=== PATIENT | female | born 1970 | race Caucasian/White ===

== ENCOUNTER 2018-06-25 15:15 | Emergency (ER) | payer OTHER ==
[~2018-06-25] VITALS: Ht 165.1 cm; Wt 71.3 kg
[2018-06-25 15:28] VITALS: BP 183/117
== END 2018-06-25 15:54 | disposition home or self-care (01) ==
LOC: ER 15:16
DX: J45.909 Unspecified asthma, uncomplicated (principal); I10 Essential (primary) hypertension; F41.9 Anxiety disorder, unspecified; F17.210 Nicotine dependence, cigarettes, uncomplicated; Z98.890 Other specified postprocedural states; Z85.41 Personal history of malignant neoplasm of cervix uteri
CPT/HCPCS: 99283; A4606; Z7610

== ENCOUNTER 2018-07-25 03:29 | Emergency (ER) | payer OTHER ==
[~2018-07-25] VITALS: Ht 160 cm; Wt 69.9 kg
--- NOTE | 2018-07-25 03:36 | NUR ---
CALLED IN WAITING ROOM, NO ANSWER.
[2018-07-25 03:52] VITALS: BP 142/82
== END 2018-07-25 04:22 | disposition home or self-care (01) ==
LOC: ER 03:33
DX: S80.862A Insect bite (nonvenomous), left lower leg, initial encounter (principal); S80.861A Insect bite (nonvenomous), right lower leg, initial encounter; J45.909 Unspecified asthma, uncomplicated; F31.9 Bipolar disorder, unspecified; I10 Essential (primary) hypertension; F10.10 Alcohol abuse, uncomplicated; F17.200 Nicotine dependence, unspecified, uncomplicated; Y90.9 Presence of alcohol in blood, level not specified; Z85.41 Personal history of malignant neoplasm of cervix uteri; Z98.890 Other specified postprocedural states; W57.XXXA Bitten or stung by nonvenomous insect and other nonvenomous arthropods, initial encounter; Y93.89 Activity, other specified; Y92.89 Other specified places as the place of occurrence of the external cause; Y99.8 Other external cause status
CPT/HCPCS: 99283; A4606; Z7610

== ENCOUNTER 2018-10-12 17:17 | Emergency (ER) | payer OTHER ==
[~2018-10-12] VITALS: Ht 162.6 cm; Wt 72.6 kg
--- NOTE | 2018-10-12 17:35 | NUR ---
PT WALKED INTO EMERGENCY ROOM WITH C/C OF ABDOMINAL PAIN FOR 5 DAYS NO DIARRHEA OR EMESIS .PT ALERT WITH ORIENTATION X 4.
[2018-10-12] MEDS ORDERED: KETOROLAC TROMETHAMINE INJ 30 MG/ML VIAL IV ONE (18:00)
[2018-10-12] MEDS ORDERED: IV NS 0.9% 1,000 ML BAG IV ONE (18:00)
[2018-10-12 18:04] LABS: APPEARANCE,URINE Clear (CLEAR); BILIRUBIN,URINE Negative (NEGATIVE); BLOOD, URINE Moderate Ery/uL (NEGATIVE); COLOR,URINE Yellow (YELLOW); KETONES,URINE Negative (NEGATIVE); LEUKOCYTE ESTERASE ,URINE Small (NEGATIVE); NITRITE, URINE Negative (NEGATIVE); PH,URINE 5.5 (5.0-8.0); PROTEIN,URINE Negative (NEGATIVE); UGLUCOSE Negative (NEGATIVE); UROBILINOGEN,URINE 0.2 EU/dL (0.2)
[2018-10-12 18:05] LABS: BASOPHILS # (AUTO) 0.1 /CMM (0.0-0.2); BASOPHILS % (AUTO) 0.5 % (0.0-2.0); EOSINOPHILS % (AUTO) 6.8 % (0.0-6.0); HEMATOCRIT 38 % (33-45); HEMOGLOBIN 13.2 g/dL (11.5-14.8); LYMPHOCYTES # (AUTO) 1.9 /CMM (0.8-4.8); LYMPHOCYTES % (AUTO) 16.9 % (20.0-44.0); MEAN CORPUSCULAR HGB CONC 35 g/dl (31.0-36.0); MEAN CORPUSCULAR VOLUME 100 fL (82-100); MONOCYTES # (AUTO) 0.4 /CMM (0.1-1.30); MONOCYTES % (AUTO) 3.5 % (2.0-12.0); NEUTROPHILS # (AUTO) 8.3 /CMM (1.8-8.9); NEUTROPHILS % (AUTO) 72.3 % (43.0-81.0); PLATELET COUNT (AUTO) 313 /CMM (150-450); WHITE BLOOD COUNT (AUTO) 11.5 K/uL (4.3-11.0)
[2018-10-12 18:23] LABS: BACTERIA,URINE 2+ /HPF (None Seen); RBC,URINE 21-50 /HPF (0-2); SQUAMOUS EPITHELIAL CELL,UR Few /HPF (None Seen)
[2018-10-12] MEDS ORDERED: KETOROLAC TROMETHAMINE INJ 30 MG/ML VIAL ONE (18:29)
[2018-10-12 18:32] LABS: CALCIUM, SERUM 8.2 mg/dL (8.5-10.1); CREATININE 0.5 mg/dL (0.6-1.3); POTASSIUM 4.3 mmol/L (3.5-5.1)
[2018-10-12 18:45] LABS: ALBUMIN 3.3 g/dL (3.4-5.0); BILIRUBIN,TOTAL 0.2 mg/dL (0.2-1.0); TOTAL PROTEIN, SERUM 7.4 g/dL (6.4-8.2)
[2018-10-12 19:38] VITALS: BP 148/94
== END 2018-10-12 19:39 | disposition home or self-care (01) ==
LOC: ER 17:20
DX: N39.0 Urinary tract infection, site not specified (principal); I10 Essential (primary) hypertension; J45.909 Unspecified asthma, uncomplicated; F31.9 Bipolar disorder, unspecified; F10.10 Alcohol abuse, uncomplicated; F12.10 Cannabis abuse, uncomplicated; Y90.9 Presence of alcohol in blood, level not specified; Z90.49 Acquired absence of other specified parts of digestive tract; Z85.41 Personal history of malignant neoplasm of cervix uteri; Z98.890 Other specified postprocedural states
CPT/HCPCS: 36415; 80048-TC; 80076-TC; 81000-TC; 84703-TC; 85025-TC; 87086-TC; A4606; J1885; J7030; Z7610

== ENCOUNTER 2018-11-30 19:08 | Emergency (ER) | payer OTHER ==
[~2018-11-30] VITALS: Ht 162.6 cm; Wt 73.9 kg
--- NOTE | 2018-11-30 19:38 | NUR ---
PT BIBS. COMP OF 'HAVING PAIN IN MY FLANK/ABDOMEN SINCE LAST NIGHT, I THINK IT MIGHT BE A UTI". -SOB. -CP. -N/V -DIZZINESS. MD AT BEDSIDE.
[2018-11-30 19:48] LABS: APPEARANCE,URINE Slightly Cloudy (CLEAR); BILIRUBIN,URINE Negative (NEGATIVE); BLOOD, URINE Moderate Ery/uL (NEGATIVE); COLOR,URINE Light yellow (YELLOW); KETONES,URINE Negative (NEGATIVE); LEUKOCYTE ESTERASE ,URINE Small (NEGATIVE); NITRITE, URINE Negative (NEGATIVE); PH,URINE 5.5 (5.0-8.0); PROTEIN,URINE Negative (NEGATIVE); UGLUCOSE Negative (NEGATIVE); UROBILINOGEN,URINE 0.2 EU/dL (0.2)
[2018-11-30] MEDS ORDERED: IV NS 0.9% 1,000 ML BAG IV ONE (20:00)
[2018-11-30] MEDS ORDERED: ONDANSETRON HCL/PF 4 MG/2 ML VIAL IVP ONE (20:00)
[2018-11-30] MEDS ORDERED: MORPHINE SULFATE INJ 2 MG/ML DISP.SYRIN IV ONE (20:00)
[2018-11-30 20:15] LABS: BASOPHILS % (AUTO) 0.3 % (0.0-2.0); EOSINOPHILS % (AUTO) 2.4 % (0.0-6.0); HEMATOCRIT 40 % (33-45); HEMOGLOBIN 14.2 g/dL (11.5-14.8); LYMPHOCYTES # (AUTO) 1.6 /CMM (0.8-4.8); LYMPHOCYTES % (AUTO) 11.4 % (20.0-44.0); MEAN CORPUSCULAR HGB CONC 35 g/dl (31.0-36.0); MEAN CORPUSCULAR VOLUME 102 fL (82-100); MONOCYTES # (AUTO) 0.4 /CMM (0.1-1.30); MONOCYTES % (AUTO) 3.2 % (2.0-12.0); NEUTROPHILS # (AUTO) 11.4 /CMM (1.8-8.9); NEUTROPHILS % (AUTO) 82.7 % (43.0-81.0); PLATELET COUNT (AUTO) 320 /CMM (150-450); RED BLOOD CELL COUNT(AUTO) 3.96 MIL/uL (4.0-5.2); WHITE BLOOD COUNT (AUTO) 13.7 K/uL (4.3-11.0)
[2018-11-30 20:19] LABS: BACTERIA,URINE Few /HPF (None Seen)
[2018-11-30 20:20] LABS: SQUAMOUS EPITHELIAL CELL,UR Moderate /HPF (None Seen)
[2018-11-30] MEDS ORDERED: ONDANSETRON HCL/PF 4 MG/2 ML VIAL ONE (20:20)
[2018-11-30] MEDS ORDERED: HYDROMORPHONE INJ 0.5 MG/0.5 ML SYRINGE ONE (20:21)
[2018-11-30 20:22] LABS: CREATININE 0.5 mg/dL (0.6-1.3); POTASSIUM 4.3 mmol/L (3.5-5.1)
--- NOTE | 2018-11-30 20:30 | NUR ---
V.O FROM MD GONZALEZ TO CHANGE MORPHINE 4MG TO DILAUDID 0.5MG IVP.
[2018-11-30] MEDS ORDERED: HYDROMORPHONE 1 MG/1 ML DISP.SYRIN IV ONE (21:00)
[2018-11-30 21:50] VITALS: BP 150/88
== END 2018-11-30 21:51 | disposition home or self-care (01) ==
LOC: ER 19:10
DX: K57.92 Diverticulitis of intestine, part unspecified, without perforation or abscess without bleeding (principal); I10 Essential (primary) hypertension; J45.909 Unspecified asthma, uncomplicated; F12.90 Cannabis use, unspecified, uncomplicated; Z90.49 Acquired absence of other specified parts of digestive tract; Z98.890 Other specified postprocedural states; Z60.2 Problems related to living alone; Z85.41 Personal history of malignant neoplasm of cervix uteri
CPT/HCPCS: 36415; 80048-TC; 81000-TC; 84703-TC; 85025-TC; 87086-TC; 87491; 87591; J2405; J7030

== ENCOUNTER 2018-12-04 11:03 | Emergency (ER) | payer OTHER ==
[~2018-12-04] VITALS: Ht 162.6 cm; Wt 74.8 kg
--- NOTE | 2018-12-04 11:08 | NUR ---
CALLED PT IN [place], NO RESPONSE.
[2018-12-04] MEDS ORDERED: HYDROMORPHONE 1 MG/1 ML DISP.SYRIN ONE (11:29)
[2018-12-04] MEDS ORDERED: ONDANSETRON HCL/PF 4 MG/2 ML VIAL ONE (11:29)
[2018-12-04] MEDS ORDERED: ONDANSETRON HCL/PF 4 MG/2 ML VIAL IVP ONE (11:30)
[2018-12-04] MEDS ORDERED: HYDROMORPHONE INJ 2 MG/ML DISP.SYRIN IV ONE (11:30)
[2018-12-04] MEDS ORDERED: IV NS 0.9% 1,000 ML BAG IV ONE (11:30)
[2018-12-04 11:39] LABS: BASOPHILS # (AUTO) 0.1 /CMM (0.0-0.2); BASOPHILS % (AUTO) 0.9 % (0.0-2.0); HEMATOCRIT 39 % (33-45); HEMOGLOBIN 13.4 g/dL (11.5-14.8); LYMPHOCYTES # (AUTO) 1.9 /CMM (0.8-4.8); MEAN CORPUSCULAR HGB CONC 34 g/dl (31.0-36.0); MEAN CORPUSCULAR VOLUME 101 fL (82-100); MONOCYTES # (AUTO) 0.5 /CMM (0.1-1.30); MONOCYTES % (AUTO) 4.5 % (2.0-12.0); NEUTROPHILS # (AUTO) 8.2 /CMM (1.8-8.9); NEUTROPHILS % (AUTO) 72.6 % (43.0-81.0); PLATELET COUNT (AUTO) 377 /CMM (150-450); RED BLOOD CELL COUNT(AUTO) 3.89 MIL/uL (4.0-5.2); WHITE BLOOD COUNT (AUTO) 11.3 K/uL (4.3-11.0)
--- NOTE | 2018-12-04 11:40 | NUR ---
PT C/O ABD PAIN & BACK PAIN, SEEN HERE LAST FRIDAY & DX W/ DIVERTICULITIS. PT HAS SHARP, INTERMITTENT ABD PAIN 07/29. SHE IS AOX4, AMB, VSS, RR EVEN AND UNLABORED ON RA. NO ACUTE DISTRESS NOTED. SEEN BY DR ROBLEDO. ORDERS HAVE BEEN CARRIED OUT.
--- NOTE | 2018-12-04 11:45 | NUR ---
PT TAKEN TO CT VIA GAYATHRI
--- NOTE | 2018-12-04 11:50 | NUR ---
URINE SENT TO STAT LAB
[2018-12-04 11:52] LABS: ALBUMIN 3.7 g/dL (3.4-5.0); BILIRUBIN,DIRECT 0.1 mg/dL (0.0-0.2); BILIRUBIN,TOTAL 0.2 mg/dL (0.2-1.0); CALCIUM, SERUM 9.3 mg/dL (8.5-10.1); CREATININE 0.7 mg/dL (0.6-1.3); POTASSIUM 3.1 mmol/L (3.5-5.1); TOTAL PROTEIN, SERUM 8.1 g/dL (6.4-8.2)
[2018-12-04 12:05] LABS: APPEARANCE,URINE Slightly Cloudy (CLEAR); BILIRUBIN,URINE Negative (NEGATIVE); BLOOD, URINE Trace-intact Ery/uL (NEGATIVE); COLOR,URINE Yellow (YELLOW); KETONES,URINE Negative (NEGATIVE); LEUKOCYTE ESTERASE ,URINE Small (NEGATIVE); NITRITE, URINE Negative (NEGATIVE); PH,URINE 5.5 (5.0-8.0); PROTEIN,URINE Trace mg/dl (NEGATIVE); UGLUCOSE Negative (NEGATIVE); UROBILINOGEN,URINE 0.2 EU/dL (0.2)
[2018-12-04 12:16] LABS: BACTERIA,URINE Few /HPF (None Seen); RBC,URINE 0-2 /HPF (0-2); SQUAMOUS EPITHELIAL CELL,UR Few /HPF (None Seen); WBC,URINE 21-50 /HPF (0-3)
--- NOTE | 2018-12-04 13:00 | NUR ---
IV removed. Catheter intact and site benign. Pressure and 4x4 applied to site. No bleeding noted.Patient discharged to home in stable condition. Written and verbal after care instructions given. Patient verbalizes understanding of instruction.
[2018-12-04 13:23] VITALS: BP 148/72
== END 2018-12-04 13:05 | disposition home or self-care (01) ==
LOC: ER 11:07
DX: R10.32 Left lower quadrant pain (principal); R10.12 Left upper quadrant pain; I10 Essential (primary) hypertension; F17.200 Nicotine dependence, unspecified, uncomplicated; J45.909 Unspecified asthma, uncomplicated; F31.9 Bipolar disorder, unspecified; Z98.890 Other specified postprocedural states; Z90.49 Acquired absence of other specified parts of digestive tract; Z60.2 Problems related to living alone; Z85.41 Personal history of malignant neoplasm of cervix uteri
CPT/HCPCS: 36415; 74176; 80048; 80076; 81001; 85025; 87086; 96374; 96375; 99284; A4606; J1170; J2405; J7030; 81000-TC

== ENCOUNTER 2018-12-21 00:50 | Emergency (ER) | payer OTHER ==
[~2018-12-21] VITALS: Ht 162.6 cm; Wt 72.6 kg
[2018-12-21 00:54] VITALS: BP 154/108
== END 2018-12-21 02:24 | disposition home or self-care (01) ==
LOC: ER 00:50
DX: L03.116 Cellulitis of left lower limb (principal); I10 Essential (primary) hypertension; J45.909 Unspecified asthma, uncomplicated; F31.9 Bipolar disorder, unspecified; F17.200 Nicotine dependence, unspecified, uncomplicated; Z98.890 Other specified postprocedural states; Z90.49 Acquired absence of other specified parts of digestive tract; Z60.2 Problems related to living alone; Z85.41 Personal history of malignant neoplasm of cervix uteri
CPT/HCPCS: 73630; 99283; A4606

== ENCOUNTER 2018-12-31 12:20 | Emergency (ER) | payer OTHER ==
[~2018-12-31] VITALS: Ht 162.6 cm; Wt 72.6 kg
[2018-12-31 12:20] VITALS: BP 128/101
--- NOTE | 2018-12-31 12:46 | NUR ---
Patient discharged to home in stable condition. Written and verbal after care instructions given. Patient verbalizes understanding of instruction.
== END 2018-12-31 12:51 | disposition home or self-care (01) ==
LOC: ER 12:23
DX: S93.692A Other sprain of left foot, initial encounter (principal); I10 Essential (primary) hypertension; J45.909 Unspecified asthma, uncomplicated; F12.90 Cannabis use, unspecified, uncomplicated; Z60.2 Problems related to living alone; Z98.890 Other specified postprocedural states; Z90.49 Acquired absence of other specified parts of digestive tract; Z85.41 Personal history of malignant neoplasm of cervix uteri; X58.XXXA Exposure to other specified factors, initial encounter; Y93.89 Activity, other specified; Y92.89 Other specified places as the place of occurrence of the external cause; Y99.8 Other external cause status
CPT/HCPCS: 99282; A4606

== ENCOUNTER 2019-06-04 13:55 | Emergency (ER) | payer OTHER ==
[~2019-06-04] VITALS: Ht 160 cm; Wt 75.3 kg
[2019-06-04 14:14] VITALS: BP 163/83
== END 2019-06-04 14:46 | disposition home or self-care (01) ==
LOC: ER 13:59
DX: J45.909 Unspecified asthma, uncomplicated (principal); Z76.0 Encounter for issue of repeat prescription; I10 Essential (primary) hypertension; F31.9 Bipolar disorder, unspecified; F17.200 Nicotine dependence, unspecified, uncomplicated; Z98.890 Other specified postprocedural states; Z90.49 Acquired absence of other specified parts of digestive tract; Z85.41 Personal history of malignant neoplasm of cervix uteri; Z60.2 Problems related to living alone

== ENCOUNTER 2019-08-24 14:43 | Emergency (ER) | payer OTHER ==
[~2019-08-24] VITALS: Ht 162.6 cm; Wt 72.6 kg
[2019-08-24 14:47] VITALS: BP 154/91
--- NOTE | 2019-08-24 15:00 | NUR ---
CHATO ALLRED AT BEDSIDE FOR EVAL.
--- NOTE | 2019-08-24 15:20 | NUR ---
Patient discharged to home in stable condition. Written and verbal after care instructions given. Patient verbalizes understanding of instruction.
== END 2019-08-24 15:20 | disposition home or self-care (01) ==
LOC: ER 14:43
DX: Z76.0 Encounter for issue of repeat prescription (principal); J45.909 Unspecified asthma, uncomplicated; F17.200 Nicotine dependence, unspecified, uncomplicated; I10 Essential (primary) hypertension; Z98.890 Other specified postprocedural states; Z60.2 Problems related to living alone; Z85.41 Personal history of malignant neoplasm of cervix uteri

== ENCOUNTER 2019-09-17 15:58 | Emergency (ER) | payer OTHER ==
[~2019-09-17] VITALS: Ht 162.6 cm; Wt 79.8 kg
[2019-09-17 16:05] VITALS: BP 162/104
== END 2019-09-17 16:29 | disposition home or self-care (01) ==
LOC: ER 16:00
DX: J06.9 Acute upper respiratory infection, unspecified (principal); J45.909 Unspecified asthma, uncomplicated; I10 Essential (primary) hypertension; F10.10 Alcohol abuse, uncomplicated; F17.200 Nicotine dependence, unspecified, uncomplicated; F12.10 Cannabis abuse, uncomplicated; Y90.9 Presence of alcohol in blood, level not specified; Z85.41 Personal history of malignant neoplasm of cervix uteri; Z59.0 Homelessness; Z90.49 Acquired absence of other specified parts of digestive tract; Z98.890 Other specified postprocedural states; Z60.2 Problems related to living alone

== ENCOUNTER 2019-10-16 14:22 | Emergency (ER) | payer OTHER ==
[~2019-10-16] VITALS: Ht 162.6 cm; Wt 79.8 kg
--- NOTE | 2019-10-16 14:37 | NUR ---
Pt came into the ed c/o LLQ pain radiating to left lower back x 2 days 06/29 ps. Pt aaox4, vss, breathing even and unlabored on room air w/ nad noted. Pt connected to the monitor and pox.
[2019-10-16] MEDS ORDERED: MORPHINE SULFATE INJ 4 MG/ML DISP.SYRIN ONE ×2 (15:25→18:01)
[2019-10-16] MEDS ORDERED: MORPHINE SULFATE INJ 2 MG/ML DISP.SYRIN IV ONE ×2 (15:30→18:00)
[2019-10-16] MEDS ORDERED: IV NS 0.9% 1,000 ML BAG IV ONE (15:30)
[2019-10-16 15:39] LABS: BASOPHILS % (AUTO) 0.5 % (0.0-2.0); EOSINOPHILS % (AUTO) 6.4 % (0.0-6.0); HEMATOCRIT 44 % (33-45); HEMOGLOBIN 15.4 g/dL (11.5-14.8); LYMPHOCYTES # (AUTO) 1.7 /CMM (0.8-4.8); LYMPHOCYTES % (AUTO) 18.5 % (20.0-44.0); MEAN CORPUSCULAR HGB CONC 35 g/dl (31.0-36.0); MEAN CORPUSCULAR VOLUME 100 fL (82-100); MONOCYTES # (AUTO) 0.3 /CMM (0.1-1.30); MONOCYTES % (AUTO) 2.9 % (2.0-12.0); NEUTROPHILS # (AUTO) 6.6 /CMM (1.8-8.9); NEUTROPHILS % (AUTO) 71.7 % (43.0-81.0); PLATELET COUNT (AUTO) 300 /CMM (150-450); WHITE BLOOD COUNT (AUTO) 9.1 K/uL (4.3-11.0)
[2019-10-16 15:56] LABS: APPEARANCE,URINE CLEAR (CLEAR); BILIRUBIN,URINE NEGATIVE (NEGATIVE); BLOOD, URINE SMALL Ery/uL (NEGATIVE); COLOR,URINE YELLOW (YELLOW); KETONES,URINE NEGATIVE (NEGATIVE); LEUKOCYTE ESTERASE ,URINE SMALL (NEGATIVE); NITRITE, URINE NEGATIVE (NEGATIVE); PH,URINE 5.5 (5.0-8.0); PROTEIN,URINE NEGATIVE (NEGATIVE); UGLUCOSE NEGATIVE (NEGATIVE); UROBILINOGEN,URINE 0.2 EU/dL (0.2)
[2019-10-16 15:57] LABS: BILIRUBIN,DIRECT 0.1 mg/dL (0.0-0.2); BILIRUBIN,TOTAL 0.6 mg/dL (0.2-1.0); CALCIUM, SERUM 9.5 mg/dL (8.5-10.1); CREATININE 0.8 mg/dL (0.6-1.3); POTASSIUM 3.8 mmol/L (3.5-5.1); TOTAL PROTEIN, SERUM 8.2 g/dL (6.4-8.2)
[2019-10-16] MEDS ORDERED: IOHEXOL-300 100 ML VIAL IV ONE (16:07)
[2019-10-16] MEDS ORDERED: IV NS 0.9% 250 ML IV ONE (16:07)
[2019-10-16] MEDS ORDERED: CT SWABBABLE VALVE TRANS SET 1 EA INFUS.SET MC ONE (16:07)
--- NOTE | 2019-10-16 16:15 | NUR ---
PT TAKEN TO CT
--- NOTE | 2019-10-16 16:39 | NUR ---
PT BACK FROM CT
[2019-10-16] MEDS ORDERED: CEFTRIAXONE 1GM BAG (ER ONLY) 50 ML IV ONE (17:57)
[2019-10-16] MEDS ORDERED: CEFTRIAXONE 1GM BAG (ER ONLY) 1 GM/50 ML PIGGYBACK IV ONE (18:00)
--- NOTE | 2019-10-16 18:36 | NUR ---
Patient discharged to home in stable condition. Written and verbal after care instructions given. Patient verbalizes understanding of instruction.IV removed. Catheter intact and site benign. Pressure and 4x4 applied to site. No bleeding noted.
[2019-10-16 18:37] VITALS: BP 118/74
== END 2019-10-16 18:37 | disposition home or self-care (01) ==
LOC: ER 14:22
DX: N39.0 Urinary tract infection, site not specified (principal); F17.200 Nicotine dependence, unspecified, uncomplicated; I10 Essential (primary) hypertension; J45.909 Unspecified asthma, uncomplicated; R19.7 Diarrhea, unspecified; Z98.890 Other specified postprocedural states; Z85.41 Personal history of malignant neoplasm of cervix uteri; Z60.2 Problems related to living alone
CPT/HCPCS: 36415; 74177; 80048; 80076; 81001; 83690; 85025; 87086; 96361; 96365; 96375; 96376; 99284; 99406; J0696; J2270 ×2; J7030; J7050; Q9967; 81000-TC

== ENCOUNTER 2019-10-30 13:52 | Emergency (ER) | payer OTHER ==
[~2019-10-30] VITALS: Ht 162.6 cm; Wt 72.6 kg
[2019-10-30 15:00] VITALS: BP 150/99
== END 2019-10-30 15:16 | disposition home or self-care (01) ==
LOC: ER 13:53
DX: Z76.0 Encounter for issue of repeat prescription (principal); J45.909 Unspecified asthma, uncomplicated; I10 Essential (primary) hypertension; F10.10 Alcohol abuse, uncomplicated; F17.200 Nicotine dependence, unspecified, uncomplicated; F12.10 Cannabis abuse, uncomplicated; Y90.9 Presence of alcohol in blood, level not specified; Z85.41 Personal history of malignant neoplasm of cervix uteri; Z90.49 Acquired absence of other specified parts of digestive tract; Z98.890 Other specified postprocedural states; Z60.2 Problems related to living alone

== ENCOUNTER 2019-11-23 15:20 | Emergency (ER) | payer OTHER ==
[~2019-11-23] VITALS: Ht 162.6 cm; Wt 72.6 kg
[2019-11-23 15:23] VITALS: BP 135/81
--- NOTE | 2019-11-23 15:49 | NUR ---
Patient discharged to home in stable condition. Written and verbal after care instructions given. Patient verbalizes understanding of instruction.
== END 2019-11-23 15:49 | disposition home or self-care (01) ==
LOC: ER 15:20
DX: J45.909 Unspecified asthma, uncomplicated (principal); F17.210 Nicotine dependence, cigarettes, uncomplicated; I10 Essential (primary) hypertension; F31.9 Bipolar disorder, unspecified; Z85.41 Personal history of malignant neoplasm of cervix uteri; Z98.890 Other specified postprocedural states; Z60.2 Problems related to living alone

== ENCOUNTER 2020-09-09 12:08 | Emergency (ER) | payer OTHER ==
[~2020-09-09] VITALS: Ht 162.6 cm; Wt 77.1 kg
[2020-09-09 12:14] VITALS: BP 155/115
--- NOTE | 2020-09-09 12:14 | NUR ---
DR SAPP AT BEDSIDE FOR EVAL.
--- NOTE | 2020-09-09 12:14 | NUR ---
BIB SELF C/O LOWER BACK PAIN AND BURNING SENSATION UPON URINATION, TO ER BED 4, HOOKED TO BP CUFF AND POX, CHANGED TO HOSP GOWN, WARM BLANKET PROVIDED, PATIENT AAOx4 , BREATHING EVEN AND UNLABORED, NAD NOTED, AWAITING MD RODRIGUEZ.
--- NOTE | 2020-09-09 12:17 | NUR ---
URINE SPECIMEN COLLECTED AND SENT TO LAB.
[2020-09-09 12:30] LABS: BILIRUBIN,URINE Negative (NEGATIVE); BLOOD, URINE Trace-intact Ery/uL (NEGATIVE); COLOR,URINE YELLOW (YELLOW); LEUKOCYTE ESTERASE ,URINE Trace (NEGATIVE); NITRITE, URINE Negative (NEGATIVE); PROTEIN,URINE Negative (NEGATIVE); UGLUCOSE Negative (NEGATIVE); UROBILINOGEN,URINE 0.2 EU/dL (0.2)
[2020-09-09 12:50] LABS: BACTERIA,URINE Few /HPF (None Seen); SQUAMOUS EPITHELIAL CELL,UR Few /HPF (None Seen)
--- NOTE | 2020-09-09 13:03 | NUR ---
Patient discharged to home in stable condition. Written and verbal after care instructions given. Patient verbalizes understanding of instruction.
== END 2020-09-09 13:04 | disposition home or self-care (01) ==
LOC: ER 12:13
DX: N39.0 Urinary tract infection, site not specified (principal); I10 Essential (primary) hypertension; J45.909 Unspecified asthma, uncomplicated; F17.200 Nicotine dependence, unspecified, uncomplicated; Z98.890 Other specified postprocedural states; Z90.49 Acquired absence of other specified parts of digestive tract; Z60.2 Problems related to living alone
CPT/HCPCS: 81001; 87086-TC

== ENCOUNTER 2021-06-19 01:08 | Emergency (ER) | payer OTHER ==
[~2021-06-19] VITALS: Ht 162.6 cm; Wt 79.4 kg
--- NOTE | 2021-06-19 02:35 | NUR ---
PATIENT WAS BIBS FROM HOME WITH C/O R FOOT PAIN AND SWELLING FOR 3 DAYS NOW. PT STATES SHE HAS HISTORY OF CELLULITIS OF THE LEGS/FEET. PT IS AAO X 4, BREATHING IS EVEN AND UNLABORED, SATURATION AT 98% ON ROOM AIR, NO SIGN OF ACUTE DISTRESS NOTED. ON ASSESSMENT, THERE IS MARKED SWELLING OF THE R FOOT/R GREAT TOE. PT WAS SEEN AND EXAMINED BY DR KOWALSKI. PT ATTACHED TO MONITOR AND PULSE OX. WILL CONTINUE TO MONITOR AND CARRY OUT MD ORDER.
[2021-06-19] MEDS ORDERED: SULFAMETH/TRIMETH 800/160 MG 1 UDTAB TABLET PO ONE (03:00)
[2021-06-19] MEDS ORDERED: HYDROCODONE/APAP 5/325MG TABLET PO ONE (03:00)
[2021-06-19] MEDS ORDERED: CEFTRIAXONE 1 G VIAL IM ONE (03:00)
[2021-06-19] MEDS ORDERED: IBUPROFEN 600 MG TABLET PO ONE (03:00)
[2021-06-19] MEDS ORDERED: HYDROCODONE/APAP 5/325MG TABLET ONE (03:06)
[2021-06-19] MEDS ORDERED: LIDOCAINE /MPF 1% VIAL 5 ML VIAL ONE (03:06)
[2021-06-19] MEDS ORDERED: CEFTRIAXONE 1 G VIAL ONE (03:07)
[2021-06-19] MEDS ORDERED: SULFAMETH/TRIMETH 800/160 MG 1 UDTAB TABLET ONE (03:07)
[2021-06-19] MEDS ORDERED: IBUPROFEN 600 MG TABLET ONE (03:07)
[2021-06-19] MEDS ORDERED: INDO-12 PO (04:23)
[2021-06-19] MEDS ORDERED: SULF1TAB48 PO (04:23)
[2021-06-19] MEDS ORDERED: COLC0.6T67 PO (04:23)
[2021-06-19] MEDS ORDERED: HYDR-4209 PO (04:23)
[2021-06-19] MEDS ORDERED: COLCHICINE 0.6 MG TABLET ONE (04:27)
[2021-06-19] MEDS ORDERED: INDOMETHACIN 25 MG CAPSULE ONE (04:28)
[2021-06-19] MEDS ORDERED: INDOMETHACIN 25 MG CAPSULE PO ONE (04:30)
[2021-06-19] MEDS ORDERED: COLCHICINE 0.6 MG TABLET PO ONE (04:30)
--- NOTE | 2021-06-19 04:40 | NUR ---
DR KOWALSKI AT BEDSIDE, EXPLAINED LAB RESULTS.
--- NOTE | 2021-06-19 04:45 | NUR ---
Patient discharged to home in stable condition. Written and verbal after care instructions given. Patient verbalizes understanding of instruction. Pt ambulatory with a steady gait
[2021-06-19 05:12] VITALS: BP 129/81
== END 2021-06-19 04:45 | disposition home or self-care (01) ==
LOC: ER 01:11
DX: M10.071 Idiopathic gout, right ankle and foot (principal); I10 Essential (primary) hypertension; J45.909 Unspecified asthma, uncomplicated; Z98.890 Other specified postprocedural states; Z87.891 Personal history of nicotine dependence; Z79.899 Other long term (current) drug therapy
CPT/HCPCS: 36415; 84550; 96372; 99284; J0696; J3490

== ENCOUNTER 2021-12-19 21:32 | Emergency (ER) | payer OTHER ==
[~2021-12-19] VITALS: Ht 162.6 cm; Wt 74.8 kg
[~2021-12-19 21:32] MED LIST: COLC0.6T67 PO; HYDR-4209 PO; INDO-12 PO; SULF1TAB48 PO
--- NOTE | 2021-12-19 22:12 | NUR ---
TO ER BED 10. BIBS C/O RIGHT WRIST PAIN S/P MECH FALL, DEFORMITY NOTED. SKIN INTACT. AWAITING MD RODRIGUEZ
--- NOTE | 2021-12-19 22:29 | NUR ---
XRAY AT BEDSIDE
[2021-12-19] MEDS ORDERED: oxyCODONE/APAP (5/325 MG) 1 UDTAB TABLET PO ONE (22:30)
[2021-12-19] MEDS ORDERED: HYDROCODONE/APAP 5/325MG TABLET PO ONE (22:30)
--- NOTE | 2021-12-19 22:37 | NUR ---
PER PT, ALTHOUGH SHE IS ALLERGIC TO HYDROCODE, RASH DEVELOPS, SHE IS OK WITH PERCOCET AND HAS TAKEN IT BEFORE WITHOUT REACTION. PT MADE AWARE OF POSSIBLE ALLERGY. MD MADE AWARE
[2021-12-19] MEDS ORDERED: oxyCODONE/APAP (5/325 MG) 1 UDTAB TABLET ONE (22:42)
--- NOTE | 2021-12-19 23:09 | NUR ---
CALLED [facility] FOR IMAGES FOLLOWUP
[2021-12-19] MEDS ORDERED: OXYC-128 PO ×2 (23:28→23:30)
--- NOTE | 2021-12-19 23:34 | NUR ---
[facility]THO PAGED PER COLBY ALLRED
--- NOTE | 2021-12-20 01:00 | NUR ---
Patient discharged to home in stable condition. Written and verbal after care instructions given. Patient verbalizes understanding of instruction.
[2021-12-20 01:13] VITALS: BP 147/98
== END 2021-12-20 01:13 | disposition home or self-care (01) ==
LOC: ER 21:33
DX: S52.501A Unspecified fracture of the lower end of right radius, initial encounter for closed fracture (principal); I10 Essential (primary) hypertension; J45.909 Unspecified asthma, uncomplicated; F31.9 Bipolar disorder, unspecified; Z87.19 Personal history of other diseases of the digestive system; Z85.41 Personal history of malignant neoplasm of cervix uteri; Z88.5 Allergy status to narcotic agent; Z79.899 Other long term (current) drug therapy; W01.0XXA Fall on same level from slipping, tripping and stumbling without subsequent striking against object, initial encounter; Y93.89 Activity, other specified; Y92.89 Other specified places as the place of occurrence of the external cause; Y99.8 Other external cause status
CPT/HCPCS: 73090-TC; 73110

== ENCOUNTER 2022-10-29 22:50 | Emergency (ER) | payer OTHER ==
[~2022-10-29] VITALS: Ht 162.6 cm; Wt 68.0 kg
[~2022-10-29 22:50] MED LIST changes: -HYDR-4209 PO
--- NOTE | 2022-10-29 22:57 | NUR ---
BIBS C/O ALLERGIC REACTION W/ ITCHY RED HIVES ON CHEST AREA. DENIES SOB. PT A/OX 4. TOLERATING R/A WELL WITH NO RESP DISTRESS, SAFETY MEASURES IN PLACE.
[2022-10-29 23:27] VITALS: BP 139/90
--- NOTE | 2022-10-29 23:27 | NUR ---
Patient discharged to home in stable condition. Written and verbal after care instructions given. Patient verbalizes understanding of instruction.
== END 2022-10-29 23:27 | disposition home or self-care (01) ==
LOC: ER 22:52
DX: S40.862A Insect bite (nonvenomous) of left upper arm, initial encounter (principal); S40.861A Insect bite (nonvenomous) of right upper arm, initial encounter; S20.369A Insect bite (nonvenomous) of unspecified front wall of thorax, initial encounter; J45.909 Unspecified asthma, uncomplicated; F31.9 Bipolar disorder, unspecified; Z98.890 Other specified postprocedural states; Z88.5 Allergy status to narcotic agent; Z79.899 Other long term (current) drug therapy; W57.XXXA Bitten or stung by nonvenomous insect and other nonvenomous arthropods, initial encounter; Y93.89 Activity, other specified; Y92.89 Other specified places as the place of occurrence of the external cause; Y99.8 Other external cause status

== ENCOUNTER 2023-04-06 06:53 | Emergency (ER) | payer OTHER ==
[~2023-04-06] VITALS: Ht 162.6 cm; Wt 61.2 kg
[2023-04-06] MEDS ORDERED: IPRATROPIUM NEB FS 0.5 MG/2.5 ML AMPUL.NEB NEB ONE (08:00)
[2023-04-06] MEDS ORDERED: predniSONE 20 MG TABLET PO ONE (08:00)
[2023-04-06] MEDS ORDERED: ALBUTEROL FS 2.5 MG/3 ML VIAL.NEB NEB ONE (08:00)
[2023-04-06] MEDS ORDERED: predniSONE 20 MG TABLET ONE (08:04)
[2023-04-06] MEDS ORDERED: ALBUTEROL FS 2.5 MG/3 ML VIAL.NEB ONE (08:11)
[2023-04-06] MEDS ORDERED: IPRATROPIUM NEB FS 0.5 MG/2.5 ML AMPUL.NEB ONE (08:11)
[2023-04-06] MEDS ORDERED: PRED20TA PO (09:33)
[2023-04-06] MEDS ORDERED: IPRA0.2S49 NEB (09:33)
--- NOTE | 2023-04-06 10:23 | NUR ---
Patient discharged to home in stable condition. Written and verbal after care instructions given. Patient verbalizes understanding of instruction.
[2023-04-06 10:25] VITALS: BP 160/92; TEMP 208.6
== END 2023-04-06 10:26 | disposition home or self-care (01) ==
LOC: ER 06:58
DX: J45.901 Unspecified asthma with (acute) exacerbation (principal); I10 Essential (primary) hypertension; Z88.8 Allergy status to other drugs, medicaments and biological substances
CPT/HCPCS: 99283; 94640; J7512

== ENCOUNTER 2023-07-06 06:10 | Emergency (ER) | payer OTHER ==
[~2023-07-06] VITALS: Ht 162.6 cm; Wt 64.0 kg
[~2023-07-06 06:10] MED LIST changes: +IPRA0.2S49 NEB; +PRED20TA PO
[2023-07-06] MEDS ORDERED: ACETAMINOPHEN ES 500 MG TABLET PO ONE (08:30)
[2023-07-06] MEDS ORDERED: ACETAMINOPHEN ES 500 MG TABLET ONE (09:21)
[2023-07-06 09:41] VITALS: BP 125/79; TEMP 98.1; O2SAT 97
== END 2023-07-06 09:42 | disposition home or self-care (01) ==
LOC: ER 06:12
DX: M79.641 Pain in right hand (principal); M25.562 Pain in left knee; I10 Essential (primary) hypertension; J45.909 Unspecified asthma, uncomplicated; F31.9 Bipolar disorder, unspecified; Z79.899 Other long term (current) drug therapy; Z88.5 Allergy status to narcotic agent
CPT/HCPCS: 73130-TC; 73564-TC

== ENCOUNTER 2024-04-24 17:33 | Emergency (ER) | payer OTHER ==
[~2024-04-24] VITALS: Ht 264.2 cm; Wt 55.3 kg
[~2024-04-24 17:33] MED LIST changes: +ALBU8.5H8 IH; +CETI10TA14 PO; -COLC0.6T67 PO; +FLUT1DIS3 INH; -INDO-12 PO; -IPRA0.2S49 NEB; +LEVO250T59 PO; +MONT10TA22 PO; -PRED20TA PO; +PRED50TA PO; -SULF1TAB48 PO
[2024-04-24 18:05] LABS: BASOPHILS # (AUTO) 0.1 K/uL (0.0-0.2); BASOPHILS % (AUTO) 1.1 % (0.0-2.0); EOSINOPHILS # (AUTO) 0.4 K/uL (0.0-0.7); EOSINOPHILS % (AUTO) 3.9 % (0.0-6.0); HEMATOCRIT 40 % (33-45); HEMOGLOBIN 13.9 g/dL (11.5-14.8); LYMPHOCYTES # (AUTO) 3.5 K/uL (0.8-4.8); LYMPHOCYTES % (AUTO) 32.6 % (20.0-44.0); MEAN CORPUSCULAR HEMOGLOBIN 34 PG (26.0-33.0); MEAN CORPUSCULAR HGB CONC 34 g/dl (31.0-36.0); MEAN CORPUSCULAR VOLUME 100 fL (82-100); MONOCYTES # (AUTO) 0.5 K/uL (0.1-1.30); MONOCYTES % (AUTO) 4.3 % (2.0-12.0); NEUTROPHILS # (AUTO) 6.3 K/uL (1.8-8.9); NEUTROPHILS % (AUTO) 58.1 % (43.0-81.0); PLATELET COUNT (AUTO) 413 K/uL (150-450); RED BLOOD CELL COUNT(AUTO) 4.05 MIL/uL (4.0-5.2); RED CELL DISTRIBUTION WIDTH 14.2 % (11.5-15.0); WHITE BLOOD COUNT (AUTO) 10.8 K/uL (4.3-11.0)
[2024-04-24 18:19] LABS: CALCIUM, SERUM 8.6 mg/dL (8.5-10.1); CREATININE 0.5 mg/dL (0.6-1.3); POTASSIUM 4.5 mmol/L (3.5-5.1)
[2024-04-24 18:25] LABS: ALBUMIN 3.8 g/dL (3.4-5.0); BILIRUBIN,DIRECT 0.1 mg/dL (0.0-0.2); BILIRUBIN,TOTAL 0.4 mg/dL (0.2-1.0); SALICYLATE 2.2 mg/dL (2.8-20.0)
[2024-04-24 19:29] LABS: APPEARANCE,URINE CLEAR (CLEAR); BILIRUBIN,URINE NEGATIVE (NEGATIVE); BLOOD, URINE TRACE-INTA Ery/uL (NEGATIVE); COLOR,URINE YELLOW (YELLOW); KETONES,URINE NEGATIVE (NEGATIVE); LEUKOCYTE ESTERASE ,URINE TRACE (NEGATIVE); NITRITE, URINE NEGATIVE (NEGATIVE); PH,URINE 6.5 (5.0-8.0); PROTEIN,URINE NEGATIVE (NEGATIVE); UGLUCOSE NEGATIVE (NEGATIVE); UROBILINOGEN,URINE 0.2 EU/dL (0.2)
[2024-04-24 19:33] LABS: ADD URINE CULTURE NO; BACTERIA,URINE RARE /HPF (None Seen)
[2024-04-24 19:38] LABS: AMPHETAMINE, URINE NEGATIVE (NEGATIVE); BARBITURATE, URINE NEGATIVE (NEGATIVE); BENZODIAZEPINE, URINE NEGATIVE (NEGATIVE); COCCAINE, URINE NEGATIVE (NEGATIVE); OPIATE, URINE NEGATIVE (NEGATIVE); PHENCYCLIDINE SCREEN,URINE NEGATIVE (NEGATIVE)
[2024-04-24 19:44] LABS: CANNABINOID, URINE POSITIVE (NEGATIVE)
[2024-04-24] MEDS ORDERED: OLANZAPINE 10 MG VIAL IM ONE (23:28)
[2024-04-24] MEDS: OLANZAPINE 10 MG VIAL IM ONE (23:31)
[2024-04-24] MEDS: ALBUTEROL FS 2.5 MG/0.5 ML VIAL.NEB NEB ONE (23:33)
[2024-04-24 23:35] VITALS: O2SAT 95
[2024-04-24] MEDS ORDERED: ALBUTEROL FS 2.5 MG/0.5 ML VIAL.NEB ONE (23:35)
[2024-04-24 23:45] VITALS: O2SAT 99
[2024-04-25] MEDS ORDERED: IBUPROFEN 600 MG TABLET ONE (00:50)
[2024-04-25] MEDS: IBUPROFEN 600 MG TABLET PO ONE (00:52)
[2024-04-25] MEDS: AMLODIPINE BESYLATE 5 MG TABLET PO ONE (04:00)
[2024-04-25] MEDS ORDERED: AMLODIPINE BESYLATE 10 MG TABLET ONE (04:12)
[2024-04-25] MEDS ORDERED: predniSONE 20 MG TABLET ONE (07:37)
[2024-04-25] MEDS ORDERED: CLONIDINE HCL 0.1 MG TABLET ONE (07:38)
[2024-04-25] MEDS: ALBUTEROL FS 2.5 MG/3 ML VIAL.NEB CONTNEB ONE (07:41)
[2024-04-25] MEDS ORDERED: IPRATROPIUM NEB FS 0.5 MG/2.5 ML AMPUL.NEB ONE (07:42)
[2024-04-25] MEDS: CLONIDINE HCL 0.1 MG TABLET PO ONE (07:42)
[2024-04-25] MEDS: predniSONE 20 MG TABLET PO ONE (07:42)
[2024-04-25] MEDS ORDERED: ALBUTEROL FS 2.5 MG/3 ML VIAL.NEB ONE (07:42)
[2024-04-25 07:46] VITALS: O2SAT 98
[2024-04-25] MEDS: IPRATROPIUM NEB FS 0.5 MG/2.5 ML AMPUL.NEB NEB ONE (07:46)
[2024-04-25 07:56] VITALS: O2SAT 99
[2024-04-25 09:29] VITALS: BP 150/79; TEMP 98; O2SAT 99
== END 2024-04-25 09:32 ==
LOC: ER 18:10
DX: R45.6 Violent behavior (principal); I10 Essential (primary) hypertension; J45.909 Unspecified asthma, uncomplicated; F10.10 Alcohol abuse, uncomplicated; Z88.8 Allergy status to other drugs, medicaments and biological substances; Z20.822 Contact with and (suspected) exposure to COVID-19; Y90.8 Blood alcohol level of 240 mg/100 ml or more
CPT/HCPCS: 99285; 96372; 85025; 80048; 80076; 81001; 36415 ×2; 94799 ×2; 94640 ×2; 87426; 80143; 80320 ×2; 80307; 98960; J3490; J7512; G0480

== ENCOUNTER 2024-09-24 16:26 | Inpatient (IN) | payer OTHER ==
[~2024-09-24] VITALS: Ht 162.6 cm; Wt 64.9 kg
[2024-09-24] MEDS ORDERED: IPRATROPIUM NEB FS 0.5 MG/2.5 ML AMPUL.NEB ONE (16:34)
[2024-09-24] MEDS ORDERED: ALBUTEROL FS 2.5 MG/3 ML VIAL.NEB ONE (16:34)
[2024-09-24] MEDS ORDERED: methylPREDNISolone SOD SUCC 125 MG/2ML VIAL ONE (16:35)
[2024-09-24] MEDS ORDERED: Magnesium 1GM/D5W 100ML PREMIX 100 ML IV ONE ×2 (16:36→18:58)
[2024-09-24 16:42] VITALS: O2SAT 97
[2024-09-24] MEDS: LEVALBUTEROL HCL NEB 1.25 MG/0.5 ML VIAL.NEB NEB ONE (16:42)
[2024-09-24] MEDS: IPRATROPIUM NEB FS 0.5 MG/2.5 ML AMPUL.NEB NEB ONE (16:42)
[2024-09-24] MEDS: ALBUTEROL FS 2.5 MG/3 ML VIAL.NEB NEB ONE (16:43)
[2024-09-24] MEDS: methylPREDNISolone SOD SUCC 125 MG/2ML VIAL IV ONE (16:46)
[2024-09-24] MEDS: Magnesium 1GM/D5W 100ML PREMIX 200 ML IV ONE (16:46)
[2024-09-24 17:35] VITALS: O2SAT 97
[2024-09-24] MEDS: IV NS 0.9% 1,000 ML BAG IV ONE (19:09)
[2024-09-24] MEDS ORDERED: ARIP10TA57 PO (19:24)
[2024-09-24 20:23] LABS: BASOPHILS % (AUTO) 0.1 % (0.0-2.0); EOSINOPHILS % (AUTO) 0.1 % (0.0-6.0); HEMATOCRIT 42 % (33-45); HEMOGLOBIN 14.6 g/dL (11.5-14.8); LYMPHOCYTES # (AUTO) 0.3 K/uL (0.8-4.8); LYMPHOCYTES % (AUTO) 2.3 % (20.0-44.0); MEAN CORPUSCULAR HEMOGLOBIN 33 PG (26.0-33.0); MEAN CORPUSCULAR HGB CONC 35 g/dl (31.0-36.0); MEAN CORPUSCULAR VOLUME 97 fL (82-100); MONOCYTES # (AUTO) 0.2 K/uL (0.1-1.30); MONOCYTES % (AUTO) 1.5 % (2.0-12.0); PLATELET COUNT (AUTO) 240 K/uL (150-450); RED BLOOD CELL COUNT(AUTO) 4.39 MIL/uL (4.0-5.2); WHITE BLOOD COUNT (AUTO) 11.5 K/uL (4.3-11.0)
[2024-09-24 20:33] LABS: CALCIUM, SERUM 8.5 mg/dL (8.5-10.1); CREATININE 0.9 mg/dL (0.6-1.3)
[2024-09-25] VITALS (17 sets, daily range): BP systolic 104–147; BP diastolic 42–104; TEMP 97.2–98.4; O2SAT 95–99
[2024-09-25] MEDS ORDERED: MAG HYDROX/AL HYDROX/SIMETH 30 ML UDC PO PRN (01:30)
[2024-09-25] MEDS ORDERED: Z GUARD REMEDY 4 OZ OINT TP PRN (01:30)
[2024-09-25] MEDS ORDERED: MAGNESIUM HYDROXIDE 30 ML UDC PO PRN (01:30)
[2024-09-25] MEDS ORDERED: ONDANSETRON HCL/PF 4 MG/2 ML VIAL IVP PRN (01:30)
[2024-09-25] MEDS ORDERED: ZOLPIDEM TARTRATE 5 MG TABLET PO PRN (01:30)
[2024-09-25] MEDS: POTASSIUM CHLORIDE 20 MEQ TAB.PRT.SR PO ONE (01:43)
[2024-09-25] MEDS: ALBUTEROL FS 2.5 MG/3 ML VIAL.NEB NEB SCH (01:45)
[2024-09-25] MEDS ORDERED: IPRATROPIUM NEB FS 0.5 MG/2.5 ML AMPUL.NEB NEB SCH (03:30)
[2024-09-25] MEDS: methylPREDNISolone SOD SUCC 125 MG/2ML VIAL IV SCH (04:07)
[2024-09-25] MEDS: IPRATROPIUM NEB FS 0.5 MG/2.5 ML AMPUL.NEB NEB SCH (04:08)
[2024-09-25] MEDS: PANTOPRAZOLE 40 MG TABLET.DR PO SCH (08:27)
[2024-09-25] MEDS: ACETAMINOPHEN 325 MG TABLET PO PRN (08:27)
[2024-09-25] MEDS: AZITHROMYCIN 500 MG in IV D5W 250 ML IV SCH (11:03)
[2024-09-25 14:04] LABS: CALCIUM, SERUM 8.8 mg/dL (8.5-10.1); CREATININE 0.9 mg/dL (0.6-1.3); POTASSIUM 4.1 mmol/L (3.5-5.1)
[2024-09-26] VITALS (14 sets, daily range): BP systolic 145–164; BP diastolic 98–114; TEMP 97.3–98.8; O2SAT 93–100
[2024-09-26 06:28] LABS: BASOPHILS % (AUTO) 0.2 % (0.0-2.0); HEMATOCRIT 42 % (33-45); HEMOGLOBIN 14.8 g/dL (11.5-14.8); LYMPHOCYTES # (AUTO) 1.1 K/uL (0.8-4.8); LYMPHOCYTES % (AUTO) 8.8 % (20.0-44.0); MEAN CORPUSCULAR HEMOGLOBIN 33 PG (26.0-33.0); MEAN CORPUSCULAR HGB CONC 35 g/dl (31.0-36.0); MEAN CORPUSCULAR VOLUME 95 fL (82-100); MONOCYTES # (AUTO) 0.6 K/uL (0.1-1.30); MONOCYTES % (AUTO) 5.2 % (2.0-12.0); NEUTROPHILS # (AUTO) 10.3 K/uL (1.8-8.9); NEUTROPHILS % (AUTO) 85.8 % (43.0-81.0); PLATELET COUNT (AUTO) 292 K/uL (150-450); RED BLOOD CELL COUNT(AUTO) 4.44 MIL/uL (4.0-5.2); RED CELL DISTRIBUTION WIDTH 12.7 % (11.5-15.0)
[2024-09-26 06:50] LABS: CREATININE 0.8 mg/dL (0.6-1.3); MAGNESIUM 2.1 mg/dL (1.8-2.4); PHOSPHORUS 3.7 mg/dL (2.5-4.9); POTASSIUM 4.4 mmol/L (3.5-5.1)
[2024-09-26] MEDS ORDERED: ALBUT2 NEB (08:49)
[2024-09-26] MEDS ORDERED: PRED5TAB48 PO (08:49)
[2024-09-26] MEDS ORDERED: AZIT1PAC9 PO (08:49)
[2024-09-26] MEDS: FLUTICASONE/VILANTEROL 1 EACH BLST.W.DEV IH SCH (11:56)
[2024-09-26] MEDS: MONTELUKAST SODIUM (10MG) 10 MG TABLET PO SCH (21:38)
[2024-09-26] MEDS: ARIPIPRAZOLE 5 MG TABLET PO SCH (21:38)
[2024-09-27] VITALS (9 sets, daily range): BP systolic 143–169; BP diastolic 99–114; TEMP 97.9–98.6; O2SAT 94–99
[2024-09-27] MEDS: hydrALAZINE HCL 25 MG TABLET PO PRN (16:01)
[2024-09-28] VITALS (12 sets, daily range): BP systolic 145–168; BP diastolic 101–116; TEMP 97.9–98.4; O2SAT 96–99
[2024-09-28] MEDS ORDERED: AZITHROMYCIN 250 MG TABLET PO SCH (10:00)
[2024-09-28] MEDS: methylPREDNISolone SOD SUCC 125 MG/2ML VIAL IV SCH (21:14)
[2024-09-29 02:00] VITALS: O2SAT 97
[2024-09-29 02:13] VITALS: O2SAT 99
[2024-09-29 06:59] LABS: BASOPHILS % (AUTO) 0.4 % (0.0-2.0); HEMATOCRIT 43 % (33-45); HEMOGLOBIN 15.1 g/dL (11.5-14.8); LYMPHOCYTES # (AUTO) 1.2 K/uL (0.8-4.8); LYMPHOCYTES % (AUTO) 11.5 % (20.0-44.0); MEAN CORPUSCULAR HEMOGLOBIN 33 PG (26.0-33.0); MEAN CORPUSCULAR HGB CONC 35 g/dl (31.0-36.0); MEAN CORPUSCULAR VOLUME 94 fL (82-100); MONOCYTES # (AUTO) 0.5 K/uL (0.1-1.30); MONOCYTES % (AUTO) 4.8 % (2.0-12.0); NEUTROPHILS # (AUTO) 8.7 K/uL (1.8-8.9); NEUTROPHILS % (AUTO) 83.3 % (43.0-81.0); PLATELET COUNT (AUTO) 269 K/uL (150-450); RED BLOOD CELL COUNT(AUTO) 4.56 MIL/uL (4.0-5.2); RED CELL DISTRIBUTION WIDTH 12.8 % (11.5-15.0); WHITE BLOOD COUNT (AUTO) 10.5 K/uL (4.3-11.0)
[2024-09-29 07:17] LABS: CALCIUM, SERUM 8.9 mg/dL (8.5-10.1); CREATININE 0.7 mg/dL (0.6-1.3); POTASSIUM 4.5 mmol/L (3.5-5.1)
[2024-09-29 08:00] VITALS: BP 151/104; TEMP 98.2; O2SAT 97
[2024-09-29 08:14] VITALS: O2SAT 96
[2024-09-29 08:24] VITALS: O2SAT 97; O2SAT 99
== END 2024-09-29 13:00 | disposition home or self-care (01) | DRG 141 ==
LOC: ER 16:33 → TELE 20:39 → MED 09-26 14:42
PROVIDERS: ADMIT Internal Medicine; ATTEND Nurse Practitioner Acute Care
DX: J45.901 Unspecified asthma with (acute) exacerbation (principal); J96.01 Acute respiratory failure with hypoxia; I10 Essential (primary) hypertension; E87.1 Hypo-osmolality and hyponatremia; Z20.822 Contact with and (suspected) exposure to COVID-19; Z87.19 Personal history of other diseases of the digestive system; E87.6 Hypokalemia; Z85.41 Personal history of malignant neoplasm of cervix uteri; Z98.890 Other specified postprocedural states; Z88.5 Allergy status to narcotic agent; Z87.891 Personal history of nicotine dependence; Z79.51 Long term (current) use of inhaled steroids; Z79.899 Other long term (current) drug therapy; D72.829 Elevated white blood cell count, unspecified; T38.0X5A Adverse effect of glucocorticoids and synthetic analogues, initial encounter; Y92.9 Unspecified place or not applicable
CPT/HCPCS: 36415; 71045-TC; 80048-TC; 83735-TC; 84100-TC; 85025-TC; 87081-TC; 94760-TC; 94761-TC; 94762-TC; 94799-TC; A4223; G0378; J0456; J2919; J3475; J7050; J7060